=== PATIENT | female | born 1995 | race Caucasian/White ===

== ENCOUNTER → 2017-02-12 | Outpatient (REF) | payer OTHER | LOC: M LAB REF 16:47 | PROVIDERS: ATTEND Family Medicine | DX: Z11.3 Encounter for screening for infections with a predominantly sexual mode of transmission (principal) ==

== ENCOUNTER 2017-04-09 18:31 | Emergency (ER) | payer OTHER ==
[~2017-04-09] VITALS: Ht 172.7 cm; Wt 108.3 kg
[2017-04-09 18:32] VITALS: BP 145/90
== END 2017-04-09 19:48 | disposition home or self-care (01) ==
LOC: M ED 19:15
DX: H10.211 Acute toxic conjunctivitis, right eye (principal); T65.91XA Toxic effect of unspecified substance, accidental (unintentional), initial encounter; Y92.89 Other specified places as the place of occurrence of the external cause; Y93.9 Activity, unspecified

== ENCOUNTER 2019-01-23 11:23 | Emergency (ER) | payer OTHER ==
[~2019-01-23] VITALS: Ht 172.7 cm; Wt 106.8 kg
[2019-01-23 12:57] VITALS: BP 134/88
[2019-01-23] MEDS ORDERED: NEOSPORIN OINT 0.9 GM PKT (FLOOR STOCK) TOP ONE (13:00)
[2019-01-23] MEDS ORDERED: ADACEL/BOOSTRIX VACCINE (DIPHTH/PERTUSS/ACELL/TETANUS)0.5ML SYR (90715) IM ONE (13:00)
== END 2019-01-23 13:05 | disposition home or self-care (01) ==
LOC: M ED 11:23
DX: S61.216A Laceration without foreign body of right little finger without damage to nail, initial encounter (principal); W26.0XXA Contact with knife, initial encounter; Y92.89 Other specified places as the place of occurrence of the external cause; Y99.0 Civilian activity done for income or pay

== ENCOUNTER 2019-01-31 10:01 | Emergency (ER) | payer OTHER, SELFPAY ==
[~2019-01-31] VITALS: Ht 172.7 cm; Wt 104.5 kg
[2019-01-31] MEDS ORDERED: dayquil (10:07)
[2019-01-31] MEDS ORDERED: predniSONE 20 MG TAB PO ONE (11:15)
[2019-01-31] MEDS: IPRATROPIUM 0.5MG/ALBUTEROL 2.5MG INH SOL UD 3ML (DUONEB)(J7620) NEB PRN ×2 (11:24→11:28)
[2019-01-31 11:53] LABS: INFLUENZA A AMPLIFICATION NEGATIVE (NEGATIVE); INFLUENZA B AMPLIFICATION NEGATIVE (NEGATIVE)
--- NOTE | 2019-01-31 12:04 | REP ---
PA and lateral chest: Comparison is 04/23/2016. The lung steele are clear. The cardiac size is normal. The namrata, mediastinum, and skeletal structures are unremarkable. Impression: Negative PA and lateral chest. There is no interval change. Electronically Signed by Sekou Cooper MD 01/31/2019 11:56 A
[2019-01-31 12:42] VITALS: BP 131/76
[2019-01-31] MEDS ORDERED: MUCI600T31 PO (12:44)
[2019-01-31] MEDS ORDERED: CLAR10CA3 PO (12:44)
[2019-01-31] MEDS ORDERED: AUGM875T28 PO (12:44)
[2019-01-31] MEDS ORDERED: IBUP80TA PO (12:44)
[2019-01-31] MEDS ORDERED: AUGMENTIN 875 MG TAB PO ONE (12:45)
== END 2019-01-31 12:56 | disposition home or self-care (01) ==
LOC: M ED 10:01
DX: J01.90 Acute sinusitis, unspecified (principal); F17.210 Nicotine dependence, cigarettes, uncomplicated

== ENCOUNTER 2019-08-16 05:36 | Emergency (ER) | payer OTHER, SELFPAY ==
[~2019-08-16] VITALS: Ht 172.7 cm; Wt 104.5 kg
[~2019-08-16 05:36] MED LIST: AUGM875T28 PO; CLAR10CA3 PO; IBUP80TA PO; MUCI600T31 PO; dayquil
[2019-08-16] MEDS ORDERED: diphenhydrAMINE 25 MG CAP PO ONE (06:15)
[2019-08-16] MEDS ORDERED: IBUPROFEN 600 MG TAB PO ONE (06:15)
[2019-08-16 06:47] VITALS: BP 136/71
== END 2019-08-16 06:48 | disposition home or self-care (01) ==
LOC: M ED 05:36
DX: S00.461A Insect bite (nonvenomous) of right ear, initial encounter (principal); W57.XXXA Bitten or stung by nonvenomous insect and other nonvenomous arthropods, initial encounter; Y92.89 Other specified places as the place of occurrence of the external cause; F17.210 Nicotine dependence, cigarettes, uncomplicated